=== PATIENT | female | born 1985 | race African-American/Black ===

== ENCOUNTER 2020-10-12 10:35 | Emergency (ER) | payer BC ==
[~2020-10-12] VITALS: Ht 165.1 cm; Wt 119.3 kg
[2020-10-12] MEDS ORDERED: NORVASC5 MG PO (10:44)
[2020-10-12] MEDS ORDERED: HYDROCHLOROTH12.5 M1 PO (10:44)
[2020-10-12 11:04] LABS: URINE BILIRUBIN NEGATIVE (Negative); URINE BLOOD TRACE (Negative); URINE CLARITY CLEAR; URINE COLOR YELLOW; URINE GLUCOSE-RANDOM* NEGATIVE (Negative); URINE KETONES NEGATIVE (Negative); URINE LEUKOCYTES-REFLEX NEGATIVE (Negative); URINE NITRITE-REFLEX NEGATIVE (Negative); URINE PROTEIN (DIPSTICK) NEGATIVE (Negative); URINE SPECIFIC GRAVITY 1.025 (1.005-1.035); URINE UROBILINOGEN 0.2 E.U./dl (0.2-1.0)
[2020-10-12 11:29] LABS: ABSOLUTE NEUTROPHILS 4.8 thou/uL (1.4-8.2); BASOPHILS 0.6 % (0.0-2.0); EOSINOPHILS 3.1 % (0.0-3.0); HEMATOCRIT 38.5 % (37.0-47.0); HEMOGLOBIN 12.7 gm/dL (12.0-15.0); LYMPHOCYTES 27.1 % (24.0-44.0); MCH 23.8 pg (26.0-34.0); MCHC 32.9 g/dL (28.0-37.0); MCV 72.1 fL (80.0-100.0); MONOCYTES 9.7 % (1.0-8.0); PLATELET COUNT 329 thou/uL (150-400); POLYS 59.5 % (36.0-66.0); RBC 5.34 mil/uL (4.20-5.00); RDW 14.8 % (10.5-14.5); WBC 8.1 thou/uL (4.0-11.0)
[2020-10-12 11:37] LABS: CALCIUM 9.1 mg/dL (8.5-10.1); CREATININE 0.8 mg/dL (0.6-1.0); POTASSIUM 3.7 mmol/L (3.5-5.1)
[2020-10-12] MEDS ORDERED: ZANAFLEX4 MG PO (12:04)
[2020-10-12] MEDS ORDERED: MOBIC7.5 MG PO (12:04)
[2020-10-12 13:21] LABS: ANISOCYTOSIS 1+; MICROCYTES 2+; PLATELET ESTIMATE NORMAL
[2020-10-12 13:28] VITALS: BP 113/88
== END 2020-10-12 13:39 | disposition home or self-care (01) ==
LOC: ER 10:35
PROVIDERS: Emergency Medicine; Nurse Practitioner
DX: S39.012A Strain of muscle, fascia and tendon of lower back, initial encounter (principal); I10 Essential (primary) hypertension; Z98.890 Other specified postprocedural states; Z88.0 Allergy status to penicillin; X58.XXXA Exposure to other specified factors, initial encounter; Y93.89 Activity, other specified; Y92.89 Other specified places as the place of occurrence of the external cause; Y99.8 Other external cause status